=== PATIENT | female | born 2000 | race Caucasian/White ===

== ENCOUNTER 2023-08-11 19:12 | Emergency (ER) | payer SELFPAY ==
[~2023-08-11] VITALS: Ht 162.6 cm; Wt 57.3 kg
[2023-08-11] MEDS ORDERED: Bacitracin Topical Oint 30 GM TUBE TOP ONE (20:00)
[2023-08-11 20:41] VITALS: BP 122/73; PULSE 83; TEMP 98.1
== END 2023-08-11 20:41 | disposition home or self-care (01) ==
LOC: COL.ER 19:12
DX: T25.232A Burn of second degree of left toe(s) (nail), initial encounter (principal); Z23 Encounter for immunization; X11.8XXA Contact with other hot tap-water, initial encounter; Y93.G1 Activity, food preparation and clean up